=== PATIENT | female | born 1945 | race Caucasian/White ===

== ENCOUNTER → 2017-05-01 | Outpatient (CLI) | payer MEDICARE, OTHER | END | disposition home or self-care (01) | LOC: GMAB 10:49 | PROVIDERS: ATTEND Family Medicine | DX: I10 Essential (primary) hypertension (principal) ==

== ENCOUNTER 2017-10-11 17:17 | Emergency (ER) | payer MEDICARE, OTHER ==
[2017-10-11 17:26] VITALS: BP 153/76; TEMP 99.8; O2SAT 95
--- NOTE | 2017-10-11 18:01 | RAD ---
EXAM DESCRIPTION: Chest,2 Views CLINICAL HISTORY: 72 years Female, cough, flu-like symptoms COMPARISON: 16 April 2016 TECHNIQUE: PA/lateral FINDINGS: There is no cardiac or pulmonary abnormality. The lungs are clear. There is no effusion. IMPRESSION: 1. Normal two-view chest. Electronically signed by: Dilshad Villalobos MD 10/11/2017 6:00 PM [facility]
[2017-10-11] MEDS ORDERED: AZITHROMYCIN 250 MG TAB PO ONE (19:11)
[2017-10-11] MEDS ORDERED: predniSONE 20 MG TAB PO ONE (19:11)
--- NOTE | 2017-10-11 19:22 | ED.PDOC ---
History of Present Illness - General Chief Complaint: Respiratory Problem Stated Complaint: Cough, sore throat Time Seen by Provider: 10/11/17 17:23 Source: patient, RN notes reviewed, Vital Signs reviewed Exam Limitations: no limitations Additional Information: Approximate 1 week hx of cough and congestion with an increase in body aches and discomfort throughout last night. Low grade fever reported as well. - History of Present Illness Timing/Duration: week, getting worse Improving Factors: rest Worsening Factors: movement Associated Symptoms: fever/chills, sore throat Allergies/Adverse Reactions: Allergies NO KNOWN ALLERGY Allergy (Verified 04/16/16 23:12) Home Medications: Ambulatory Orders Propafenone HCl [Propafenone HCl ER] 225 mg PO BID 12/07/15 Warfarin Sodium 5 mg PO DAILY 12/07/15 Warfarin Sodium 7.5 mg PO DAILY 12/07/15 Azithromycin [Zithromax Z-Feng] 1 ea PO DAILY #1 pack 10/11/17 Prednisone [Deltasone] 40 mg PO DAILY 4 Days #8 tab 10/11/17 Review of Systems - Review of Systems Constitutional: States: fever EENTM: States: see HPI, throat pain Respiratory: States: see HPI, cough Cardiology: States: no symptoms reported Gastrointestinal/Abdominal: States: no symptoms reported Genitourinary: States: no symptoms reported Musculoskeletal: States: no symptoms reported Skin: States: no symptoms reported Neurological: States: no symptoms reported Endocrine: States: no symptoms reported Hematologic/Lymphatic: States: no symptoms reported Past Medical History (General) - Patient Medical History Hx Seizures: No Hx Stroke: No Hx Dementia: No Hx Asthma: No Hx of COPD: No Hx Cardiac Disorders: Yes Hx Congestive Heart Failure: No Hx Pacemaker: No Hx Hypertension: Yes Hx Thyroid Disease: No Hx Diabetes: No Hx Gastroesophageal Reflux: No Hx Renal Disease: No Hx Cancer: No Hx of HIV: No Hx Hepatitis C: No Hx MRSA: No - Vaccination History Hx Tetanus, Diphtheria Vaccination: No Hx Influenza Vaccination: No Hx Pneumococcal Vaccination: Yes - Social History Hx Tobacco Use: No Hx Chewing Tobacco Use: No Hx Alcohol Use: No Hx Substance Use: No Hx Substance Use Treatment: No Hx Depression: No Hx Physical Abuse: No Hx Emotional Abuse: No Hx Suspected Abuse: No - Female History Patient : No Family Medical History - Family History Mother Family History: Unknown Living Status: Physical Exam - Physical Exam General Appearance: Alert, Comfortable, No apparent distress, Well Developed, Well Groomed, Well Hydrated, Well Nourished Eye Exam: bilateral normal ENT Exam: normal ENT inspection, hearing grossly normal, pharynx normal Neck: non-tender, full range of motion, supple Respiratory: lungs clear - with occasional dry cough, no respiratory distress, no accessory muscle use Cardiovascular/Chest: regular rate, rhythm, no edema Gastrointestinal/Abdominal: non tender, soft Extremity: normal range of motion, non-tender, normal inspection Neurologic: automatic outsole cutter II-XII nml as tested, no motor/sensory deficits, alert, normal mood/affect, oriented x 3 Skin Exam: normal color Progress - Progress Progress: 10/12/17 00:15 Pt afebrile, nontoxic. CXR without evidence of PNA. Flu negative. Will treat with Z-Feng to cover for atypicals and Prednisone to help with suspected airway inflammation for bronchitis likely due to a virus or allergen. - Results/Orders Results/Orders: Chest X-ray normal and Rapid Flu test negative. Departure - Departure Clinical Impression: Bronchitis Time of Disposition: 19:25 Disposition: Discharge to Home or Self Care Departure Forms: ED Discharge - Pt. Copy, Patient Portal Self Enrollment Instructions: DI for Acute Bronchitis Referrals: Niranjan Bryant MD [Primary Care Provider] - 1-5 Days Prescriptions: Azithromycin [Zithromax Z-Feng] 1 ea PO DAILY #1 pack Prednisone [Deltasone] 40 mg PO DAILY 4 Days #8 tab Home Medications: Ambulatory Orders Propafenone HCl [Propafenone HCl ER] 225 mg PO BID 12/07/15 Warfarin Sodium 5 mg PO DAILY 12/07/15 Warfarin Sodium 7.5 mg PO DAILY 12/07/15 Azithromycin [Zithromax Z-Feng] 1 ea PO DAILY #1 pack 10/11/17 Prednisone [Deltasone] 40 mg PO DAILY 4 Days #8 tab 10/11/17 Additional Instructions: Take medicine as prescribed. Sleep upright if needed to decrease coughing sensation. Return to ER if condition worsens.
== END 2017-10-11 19:25 | disposition home or self-care (01) ==
LOC: ER 17:17
DX: J40 Bronchitis, not specified as acute or chronic (principal); I10 Essential (primary) hypertension; I51.9 Heart disease, unspecified; Z79.01 Long term (current) use of anticoagulants; Z79.899 Other long term (current) drug therapy
CPT/HCPCS: 71020; 87502; J7512; Q0144

== ENCOUNTER 2017-10-13 21:42 | Observation (INO) | payer MEDICARE, OTHER ==
--- NOTE | 2017-10-13 22:46 | RAD ---
EXAM: Two view chest. INDICATION: Palpitations. COMPARISON: Chest x-ray: 10/11/2017. FINDINGS: Cardiac silhouette: Unremarkable. Aggie: Unremarkable. Lobar consolidation: None. Pleural effusion: None. Pneumothorax: None. Other: None. Bones: Unremarkable. Other: None. IMPRESSION: 1. No acute cardiopulmonary process. Electronically signed by: Quan Leigh MD 10/13/2017 10:45 PM [facility] Workstation: [id number]
[2017-10-13] MEDS ORDERED: SODIUM CHLORIDE 0.9% 1000ML 1,000 ML IVS ONE (23:05)
--- NOTE | 2017-10-14 00:39 | ED.PDOC ---
History of Present Illness - General Chief Complaint: Cardiovascular Problem Stated Complaint: Irregular heart rate Time Seen by Provider: 10/13/17 22:06 Source: patient Exam Limitations: no limitations - History of Present Illness Initial Comments: the patient's a 72-year-old female presenting to the emergency room secondary to feeling of palpitations starting early this morning. The patient does have a history of atrial fibrillation but has been in a normal sinus rhythm for a couple of years while taking propanolol unknown. Approximately 5 or 6 days ago the patient was seen for a upper respiratory tract infection and was written for for some azithromycin and prednisone. It is uncertain whether the azithromycin has interacted with the propafenone because the arrhythmia is seen today. Initial EKG upon her arrival here showed what appears to be a winky block type block with a sinus tachycardia where every third beat is skipped. After an hour or so the patient went over to gilbert atrial fibrillation with RVR. She did take an extra dose of her propafenone this evening. She does still have a very mild clearing cough. Timing/Duration: constant Severity: moderate Improving Factors: nothing Worsening Factors: nothing Associated Symptoms: denies symptoms Allergies/Adverse Reactions: Allergies NO KNOWN ALLERGY Allergy (Verified 04/16/16 23:12) Home Medications: Ambulatory Orders Propafenone HCl [Propafenone HCl ER] 225 mg PO BID 12/07/15 Warfarin Sodium 5 mg PO DAILY 12/07/15 Warfarin Sodium 7.5 mg PO DAILY 12/07/15 Azithromycin [Zithromax Z-Feng] 1 ea PO DAILY #1 pack 10/11/17 Prednisone [Deltasone] 40 mg PO DAILY 4 Days #8 tab 10/11/17 Review of Systems - Review of Systems Constitutional: States: no symptoms reported EENTM: States: nose congestion Respiratory: States: cough. Denies: short of breath Cardiology: States: palpitations. Denies: chest pain Gastrointestinal/Abdominal: States: no symptoms reported Genitourinary: States: no symptoms reported Musculoskeletal: States: no symptoms reported Skin: States: no symptoms reported Neurological: States: no symptoms reported Endocrine: States: no symptoms reported All other Systems: No Change from Baseline Past Medical History (General) - Patient Medical History Hx Seizures: No Hx Stroke: No Hx Dementia: No Hx Asthma: No Hx of COPD: No Hx Cardiac Disorders: Yes Hx Congestive Heart Failure: No Hx Pacemaker: No Hx Hypertension: Yes Hx Thyroid Disease: No Hx Diabetes: No Hx Gastroesophageal Reflux: No Hx Renal Disease: No Hx Cancer: No Hx of HIV: No Hx Hepatitis C: No Hx MRSA: No Surgical History: no surgical history - Vaccination History Hx Tetanus, Diphtheria Vaccination: No Hx Influenza Vaccination: No Hx Pneumococcal Vaccination: Yes - 2016 - Social History Hx Tobacco Use: No Hx Chewing Tobacco Use: No Hx Alcohol Use: No Hx Substance Use: No Hx Substance Use Treatment: No Hx Depression: No Hx Physical Abuse: No Hx Emotional Abuse: No Hx Suspected Abuse: No - Female History Patient : No Family Medical History - Family History Mother Family History: Unknown Living Status: Physical Exam - Physical Exam General Appearance: Alert, Comfortable, No apparent distress Eye Exam: bilateral normal Ears, Nose, Throat: hearing grossly normal, normal pharynx, nasal congestion Neck: full range of motion, supple Respiratory: lungs clear, normal breath sounds, no respiratory distress, no accessory muscle use Cardiovascular/Chest: normal peripheral pulses, no edema, tachycardia Peripheral Pulses: radial,right: 2+, radial,left: 2+, dorsalis pedis,right: 2+, dorsalis pedis,left: 2+ Gastrointestinal/Abdominal: non tender, soft Rectal Exam: deferred Back Exam: normal inspection, no CVA tenderness Extremity: normal range of motion, non-tender, normal inspection, no pedal edema , normal capillary refill Neurologic: family law attorney II-XII nml as tested, no motor/sensory deficits, alert, normal mood/affect, oriented x 3 Skin Exam: normal color Comments: Vital Signs - 24 hr 10/13/17 10/13/17 10/13/17 21:59 22:25 23:00 Temperature 98.5 F Pulse Rate 112 H 122 H 124 H Pulse Rate [ 113 H 121 H 120 H right] Respiratory 16 16 16 Rate Blood Pressure 164/91 112/86 140/99 [right] O2 Sat by Pulse 98 96 95 Oximetry Progress - Progress Progress: 10/14/17 00:42 the patient's a 72-year-old female presenting to the emergency room with palpitations. She has gone from a wenckebach block with tachycardia to atrial fibrillation with RVR. She is minimally symptomatic however given the mildly unpredictable nature of her arrhythmia the patient is going to be admitted overnight for monitoring. I have discussed the patient with Dr. Peng , who is a partner of compliance assistant Dr. Dumont,her primary compliance assistant, who has advised to give the patient some Cardizem overnight to see if she goes on and slows down and cardioverts. The patient is agreeable to this plan. She will be continued on her routine medications aside from the prednisone and the azithromycin. Admit for above measures and monitoring. 10/14/17 00:45 - Results/Orders Results/Orders: Laboratory Tests 10/13/17 10/13/17 10/13/17 22:17 22:17 22:17 WBC 4.5 L RBC 4.32 Hgb 13.5 Hct 40.4 MCV 93.5 MCH 31.3 H MCHC 33.4 RDW 13.5 Plt Count 192 MPV 7.9 Absolute Neuts (auto) 1.20 L Absolute Lymphs (auto) 2.30 Absolute Monos (auto) 0.90 H Absolute Eos (auto) 0.00 Absolute Basos (auto) 0.00 Neutrophils % 27.7 L Lymphocytes % 51.5 H Monocytes % 19.4 H Eosinophils % 0.9 L Basophils % 0.5 PT 18.3 H INR 1.630 PTT (SP) 35.5 Sodium 142 Potassium 3.6 Chloride 107 Carbon Dioxide 26 Anion Gap 12.6 BUN 17 Creatinine 0.78 BUN/Creatinine Ratio 21.8 H Random Glucose 94 Serum Osmolality 284.4 Calcium 9.0 Magnesium 1.9 Total Bilirubin 0.3 AST 37 ALT 28 Alkaline Phosphatase 76 Creatine Kinase 62 CK-MB (CK-2) 1.4 CK-MB (CK-2) % Not Reportable Troponin I < 0.02 B-Natriuretic Peptide 71.6 Serum Total Protein 7.7 Albumin 4.0 Globulin 3.7 H Albumin/Globulin Ratio 1.1 TSH 3.54 chest x-ray shows no acute pathology. No evidence of any gilbert pneumonia. No evidence of fluid overload. EKG shows sinus tachycardia with a winky block block at a rate of 113 bpm. Poor R-wave progression in anterior leads. Mild ST segment depression in leads V6 and possibly V5. There is a prolonged QT corrected at 510. Later telemetry shows gilbert atrial fibrillationwith RVR. Departure - Departure Clinical Impression: Paroxysmal atrial fibrillation with RVR Disposition: Admit Patient Referrals: Niranjan Bryant MD [Primary Care Provider] - 1-2 Weeks Home Medications: Ambulatory Orders Propafenone HCl [Propafenone HCl ER] 225 mg PO BID 12/07/15 Warfarin Sodium 5 mg PO DAILY 12/07/15 Warfarin Sodium 7.5 mg PO DAILY 12/07/15 Azithromycin [Zithromax Z-Feng] 1 ea PO DAILY #1 pack 10/11/17 Prednisone [Deltasone] 40 mg PO DAILY 4 Days #8 tab 10/11/17 Decision To Admit - Decistion To Admit Decision to Admit Reason: Medical Nature Decision to Admit Date: 10/14/17 Decision to Admit Time: 00:51
[2017-10-14] MEDS ORDERED: ACETAMINOPHEN 325 MG TAB PO PRN (00:56)
[2017-10-14] MEDS ORDERED: SODIUM CHLORIDE 0.9% (FLUSH) 10 ML SYG IV PRN (00:56)
[2017-10-14] MEDS ORDERED: NITROGLYCERIN 0.4 MG 25 EA TAB SL PRN (00:56)
[2017-10-14] MEDS ORDERED: IV SET AND CAP CHANGE INJ INJ SCH (01:00)
[2017-10-14] MEDS ORDERED: ENOXAPARIN SODIUM 80 MG/0.8 ML SYG SUBCU ONE (02:12)
[2017-10-14] MEDS ORDERED: WARFARIN SODIUM 5 MG TAB ONE (08:51)
[2017-10-14] MEDS ORDERED: SODIUM CHLORIDE 0.9% (FLUSH) 10 ML SYG IV SCH (09:00)
[2017-10-14] MEDS ORDERED: PROPAFENONE 150 MG TAB PO SCH (09:00)
[2017-10-14 10:52] VITALS: O2SAT 94
[2017-10-14 10:53] VITALS: BP 119/81; TEMP 96.4
[2017-10-14] MEDS ORDERED: WARFARIN SODIUM 5 MG TAB PO SCH (12:00)
--- NOTE | 2017-10-14 15:12 | SSS ---
SUPERVISING PHYSICIAN: Roberto Shaw M.D. CHIEF COMPLAINT: Irregular heart rate. HISTORY OF PRESENT ILLNESS: Ms. Rodriguez is a 72 year-old female patient that presented to the Emergency Room on 10/13/17 secondary to some palpitations that she had noted earlier in the day. She does have a significant history for having atrial fibrillation but it is noted that she has been in normal sinus rhythm for several years for which she takes Rythmol. She notes that she was in the E. R. approximately 5 days previously and was treated for an upper respiratory infection and started on Azithromycin and Prednisone. There was a question of whether or not her arrhythmia was a result of interactions between Azithromycin and Rythmol. Her initial EKG on arrival showed that she was in a Wenckebach type block with a sinus tachycardia. She did convert into atrial fibrillation with rapid ventricular response and then at that time Dr. Shaw, EPrateek Gottlieb. physician, contacted Dr. Dumont, the patient's washtub worker helper, who recommended that the patient be placed in Observation for overnight monitoring and stop the Azithromycin, and continue with all other medications. The patient was showing to be stable at time of admission and was placed in Observation. PAST MEDICAL HISTORY: 1. Hypertension. 2. History of atrial fibrillation but currently in normal sinus rhythm on Rythmol and on chronic anticoagulation with Warfarin. PAST SURGICAL HISTORY: 1. A couple of epidermal cysts removed and once in the breast. CURRENT MEDICATIONS: 1. Losartan 50 mg at bedtime. 2. Rythmol extended release 245 mg b.i.d. 3. Warfarin 5 mg daily. ALLERGIES: NO KNOWN DRUG ALLERGIES. FAMILY HISTORY: Mother at age 73 with Alzheimer's disease. She as well had cardiovascular disease. Father at age 67 with an autoimmune disorder. SOCIAL HISTORY: The patient has never smoked or drank alcohol. 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 She is and lives in [place]. REVIEW OF SYSTEMS: CONSTITUTIONAL: Denies any fevers, chills, weight gain or weight loss. HEENT: No visual disturbances, headaches, syncopal episodes. CARDIOVASCULAR: As noted in history of present illness. No chest pains but palpitations. RESPIRATORY: Denies any shortness of breath, cough or hemoptysis. GASTROINTESTINAL: No nausea, vomiting, hematochezia, hematemesis or melena, diarrhea or constipation. GENITOURINARY: No dysuria, hematuria or polyuria. NEUROLOGIC: No reported weaknesses or any other loss of sensation of extremities. No syncopal episodes reported nor any near syncopal episodes. PHYSICAL EXAMINATION: VITAL SIGNS: Initially in the Emergency Department temperature was 98.5, pulse 122, blood [id number], respirations 16, satting 96% on room air. Admission weight was 84.5 kg. GENERAL: On examination on the Medical/Surgical floor, the patient appeared to be comfortable in no distress, alert and well hydrated, well nourished. HEENT: Tympanic membranes are clear bilaterally. Oropharynx was pink and moist without any lesions. NECK: Supple, non-tender with full range of motion. No jugular venous distention. CHEST: Lungs were clear to auscultation bilaterally without any rhonchi, wheezing or rales. CARDIOVASCULAR: Regular rate and rhythm with no rubs, gallops or murmurs noted. ABDOMEN: Soft, non-tender. Positive bowel sounds. EXTREMITIES: No clubbing, cyanosis or edema. NEUROLOGIC: She was alert and oriented times three. Cranial nerves II-XII are grossly intact. Extraocular movements are within normal limits. There was no notable nystagmus. LABORATORY: Laboratory in the Emergency Department showed she had a white count of 4,500 with hemoglobin 13.5, hematocrit 40.4, platelet count 192,000. Differential showed to be within normal limits. Coagulation studies showed an INR of 1.63 with PT of 18.3, PTT 35.5. Chemistries showed normal electrolytes with BUN 17, creatinine 0.7, glucose 94, calcium 9.8, magnesium 1.9. Liver functions all within normal limits. Troponin was less than 0.02. BNP was normal at 72. RADIOLOGY: Chest x-ray in the Emergency Department per radiology interpretation of a two view chest showed no acute cardiopulmonary process. EKG initially in the Emergency Department showed sinus tachycardia with Wenckebach block at a rate of 113 with a prolonged QT corrected interval of 510. After given Cardizem and several hours observation, repeat EKG showed a sinus tachycardia arrhythmia. No ST changes or T wave inversions. Final EKG performed prior to discharge showed just a sinus arrhythmia with no ST or T wave changes. HOSPITAL COURSE: Ms. Rodriguez was placed in Observation from the Emergency Department as noted in History of Present Illness for atrial fibrillation or rapid heart rate resulted from interaction between Azithromycin and Rythmol. The E. R. physician, Dr. Shaw, contacted Dr. Dumont who recommended that the patient be placed in Observation overnight and allow her to get a dose of Cardizem and may possibly cardiovert on her own with the intentions of discontinuing Azithromycin. The patient was admitted to the Medical/Surgical floor. At that time she was showing a sinus arrhythmia. No evidence of atrial fibrillation. Ventricular rate of 102. She was hemodynamically stable. She had no chest pains. No shortness of breath and on examination was found to be without any concerning findings. She was given her home medications that included Rythmol prior to discharge and allowed for an additional 6 hours of observation with no recurrence of rapid heart rates or any other arrhythmias. It was felt that she was clinically stable enough to be discharged home. She was instructed that she should not take her Azithromycin and Prednisone, and as well make sure that she lists Azithromycin as an adverse reaction due to the Rythmol. The patient was discharged in stable condition. DIAGNOSIS AT DISCHARGE: 1. Paroxysmal supraventricular tachycardia secondary to drug interactions between Azithromycin and Rythmol requiring close monitoring with the patient showing a sinus arrhythmia prior to discharge with controlled ventricular rate and hemodynamically stable. 2. History of atrial fibrillation having been in normal sinus rhythm for well over 2 years with the patient again showing sinus arrhythmia at discharge on Rythmol. 3. Hypertension on Losartan and well controlled. 4. Chronic anticoagulation with Coumadin monitored by Dr. Bryant. 5. History of previous treatments for upper respiratory infection with Azithromycin and Prednisone showing improvement with no evidence of bronchitis or pneumonia. PLAN: The patient is to discharge home to have close clinical followup with both Dr. Bryant and Dr. Dumont, her washtub worker helper. She was instructed to not take the Azithromycin antibiotic or Prednisone. She was to take her regular medications as previously instructed and to rest and avoid any caffeine- containing drinks. She was instructed that should she have any change in her rhythms or any concerns or chest pain, she was to return to the E. R. for further evaluation. At discharge, diet was regular diet as tolerated. Activity as tolerated but no strenuous exercise for at least the next 48 hours. MEDICATIONS AT DISCHARGE: No new medications were prescribed. She was on home medications as above on Losartan, Rythmol and Warfarin. Condition at discharge was stable and improved. #[id number] [facility]
[2017-10-14] MEDS ORDERED: LOSARTAN POTASSIUM 25 MG TAB PO SCH (21:00)
== END 2017-10-14 12:55 | disposition home or self-care (01) ==
LOC: ER 21:42 → MS 10-14 01:01
PROVIDERS: ADMIT Nurse Practitioner Family; ATTEND Nurse Practitioner Family
DX: I47.1 Supraventricular tachycardia (principal); T36.3X5A Adverse effect of macrolides, initial encounter; T46.2X5A Adverse effect of other antidysrhythmic drugs, initial encounter; I44.1 Atrioventricular block, second degree; I48.91 Unspecified atrial fibrillation; I10 Essential (primary) hypertension; Z79.01 Long term (current) use of anticoagulants; Z79.899 Other long term (current) drug therapy; Y92.009 Unspecified place in unspecified non-institutional (private) residence as the place of occurrence of the external cause; Z82.49 Family history of ischemic heart disease and other diseases of the circulatory system
CPT/HCPCS: 36415; 71020; 80053; 82550; 82553; 83735; 83880; 84443; 84484; 85025; 85610; 85730; 93005 ×2; 94760; 96361; 96372; 96374; 99284; G0378; J1650; J7030

== ENCOUNTER 2017-11-21 20:56 | Emergency (ER) | payer MEDICARE, OTHER ==
[2017-11-21 22:27] VITALS: TEMP 97.4; O2SAT 98
[2017-11-21] MEDS ORDERED: CYCLOBENZAPRINE HCL 10 MG TAB PO ONE (22:50)
[2017-11-21] MEDS ORDERED: predniSONE 20 MG TAB PO ONE (22:50)
[2017-11-21] MEDS ORDERED: KETOROLAC TROMETHAMINE INJ 30 MG/ML VIAL IM ONE (22:53)
--- NOTE | 2017-11-21 22:53 | ED.PDOC ---
History of Present Illness - General Chief Complaint: Back Pain or Injury Stated Complaint: upper back pain Time Seen by Provider: 11/21/17 22:25 Source: patient Exam Limitations: no limitations - History of Present Illness Initial Comments: the patient is a 72-year-old female presenting to emergency room secondary to 3-5 days of right-sided shoulder pain. The pain is at the superior -lateral aspect of the trapezius muscle on the right. It is also over the rhomboid muscle on the right. Both areas are tender to palpation. After she has a spasm in those areas she has pain going down her right arm in aradiculopathic type fashion. She has been doing some heavy lifting recently. She is not having any shortness of breath or chest pain or palpitations. No nausea or vomiting. No fevers. Timing/Duration: 1 week Severity: mild Improving Factors: nothing Worsening Factors: movement Associated Symptoms: denies symptoms Allergies/Adverse Reactions: Allergies Azithromycin Adverse Reaction (Verified 11/21/17 22:20) Home Medications: Ambulatory Orders Propafenone HCl [Propafenone HCl ER] 225 mg PO BID 12/07/15 Warfarin Sodium 5 mg PO DAILY 12/07/15 Losartan Potassium [Cozaar] 50 mg PO BEDTIME 10/14/17 Jcycuqersbtna-Mzin-Swwnwnvlur [Fioricet] 1 ea PO Q8H PRN #21 tab 11/21/17 Cyclobenzaprine HCl [Flexeril] 5 mg PO TID PRN #30 tab 11/21/17 predniSONE [Prednisone] 20 mg PO DAILY #3 tab 11/21/17 Review of Systems - Review of Systems Constitutional: States: no symptoms reported EENTM: States: no symptoms reported Respiratory: States: no symptoms reported Cardiology: States: no symptoms reported Gastrointestinal/Abdominal: States: no symptoms reported Genitourinary: States: no symptoms reported Musculoskeletal: States: back pain Skin: States: no symptoms reported Neurological: States: anxiety Endocrine: States: no symptoms reported All other Systems: No Change from Baseline Past Medical History (General) - Patient Medical History Hx Seizures: No Hx Stroke: No Hx Dementia: No Hx Asthma: No Hx of COPD: No Hx Cardiac Disorders: Yes - A-fib Hx Congestive Heart Failure: No Hx Pacemaker: No Hx Hypertension: Yes Hx Thyroid Disease: No Hx Diabetes: No Hx Gastroesophageal Reflux: No Hx Renal Disease: No Hx Cancer: No Hx of HIV: No Hx Hepatitis C: No Hx MRSA: No Surgical History: no surgical history - Vaccination History Hx Tetanus, Diphtheria Vaccination: No Hx Influenza Vaccination: No Hx Pneumococcal Vaccination: Yes Immunizations Up to Date: Yes - Social History Hx Tobacco Use: No Hx Chewing Tobacco Use: No Hx Alcohol Use: No Hx Substance Use: No Hx Substance Use Treatment: No Hx Depression: No Hx Physical Abuse: No Hx Emotional Abuse: No Hx Suspected Abuse: No - Female History Patient is a Female of Child Bearing Age (10 -59 yrs old): No Patient : No Family Medical History - Family History Mother Family History: Unknown Living Status: Hx Cardiac Disease: Yes Age of Onset (years of age): 68 Physical Exam - Physical Exam General Appearance: Alert, Anxious, No apparent distress Eye Exam: bilateral normal Ears, Nose, Throat: normal ENT inspection, normal pharynx Neck: full range of motion, supple Respiratory: lungs clear, normal breath sounds, no respiratory distress, no accessory muscle use Cardiovascular/Chest: normal peripheral pulses, regular rate, rhythm, no edema Peripheral Pulses: radial,right: 2+, radial,left: 2+, dorsalis pedis,right: 2+, dorsalis pedis,left: 2+ Gastrointestinal/Abdominal: non tender, soft Rectal Exam: deferred Back Exam: other - see history of present illness Extremity: normal range of motion, non-tender, normal inspection, no pedal edema 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 Progress - Progress Progress: 11/21/17 22:54 the patient is a 72-year-old female presenting with a right shoulder strain in the form of what appears to be a distal trapezius strain on the right and a rhomboid strain on the right. She needs to do stretching exercises. Topical heat in the form of a heat pad or icy hot or Biofreeze may help. The patient is being dosed tonight with a dose of Flexeril and prednisone. She will be written for 3 days of low-dose prednisone and as needed 5 mg Flexeril. Additionally she will be written for doses of Fioricet when the pain is significantly uncontrolled. She should also try taking Aleve twice daily for the next week with food. ER warnings were given for any significant worsening. She needs to follow-up with her primary care doctor later this week or early next week. She is in normal sinus rhythm currently. She needs to have a repeat INR checkedearly next week. Departure - Departure Clinical Impression: Right shoulder strain Qualifiers: Encounter type: initial encounter Qualified Code(s): S46.911A - Strain of unspecified muscle, fascia and tendon at shoulder and upper arm level, right arm , initial encounter Disposition: Discharge to Home or Self Care Condition: Fair Departure Forms: ED Discharge - Pt. Copy, Patient Portal Self Enrollment Instructions: DI for Shoulder Pain Diet: regular diet Activity: increase activity as tolerated Referrals: Niranjan Bryant MD [Primary Care Provider] - 1-5 Days Prescriptions: Eohcqynkqmnpg-Zrmm-Tmtvaljecr [Fioricet] 1 ea PO Q8H PRN #21 tab PRN Reason: Pain Cyclobenzaprine HCl [Flexeril] 5 mg PO TID PRN #30 tab PRN Reason: Muscle Spasms predniSONE [Prednisone] 20 mg PO DAILY #3 tab Home Medications: Ambulatory Orders Propafenone HCl [Propafenone HCl ER] 225 mg PO BID 12/07/15 Warfarin Sodium 5 mg PO DAILY 12/07/15 Losartan Potassium [Cozaar] 50 mg PO BEDTIME 10/14/17 Ffcywpecolrzv-Zynp-Kwnnnhxaxg [Fioricet] 1 ea PO Q8H PRN #21 tab 11/21/17 Cyclobenzaprine HCl [Flexeril] 5 mg PO TID PRN #30 tab 11/21/17 predniSONE [Prednisone] 20 mg PO DAILY #3 tab 11/21/17 Additional Instructions: the patient is a 72-year-old female presenting with a right shoulder strain in the form of what appears to be a distal trapezius strain on the right and a rhomboid strain on the right. She needs to do stretching exercises. Topical heat in the form of a heat pad or icy hot or Biofreeze may help. The patient is being dosed tonight with a dose of Flexeril and prednisone. She will be written for 3 days of low-dose prednisone and as needed 5 mg Flexeril. Additionally she will be written for doses of Fioricet when the pain is significantly uncontrolled. She should also try taking Aleve twice daily for the next week with food. ER warnings were given for any significant worsening. She needs to follow-up with her primary care doctor later this week or early next week. She is in normal sinus rhythm currently. She needs to have a repeat INR checkedearly next week. her blood pressure was moderately elevated here tonight and needs to be followed as an outpatient with her primary care doctor. It was likely elevated secondary to anxiety and pain.
[2017-11-21 23:18] VITALS: BP 185/90
== END 2017-11-21 23:17 | disposition home or self-care (01) ==
LOC: ER 20:56
DX: S46.911A Strain of unspecified muscle, fascia and tendon at shoulder and upper arm level, right arm, initial encounter (principal); I48.91 Unspecified atrial fibrillation; I10 Essential (primary) hypertension; Z79.01 Long term (current) use of anticoagulants; X58.XXXA Exposure to other specified factors, initial encounter
CPT/HCPCS: J1885; J7512

== ENCOUNTER 2018-02-16 00:37 | Emergency (ER) | payer MEDICARE, OTHER ==
[2018-02-16 00:55] VITALS: TEMP 97.8
[2018-02-16] MEDS ORDERED: ALPRAZolam 0.25 MG TAB PO ONE (01:05)
--- NOTE | 2018-02-16 01:14 | RAD ---
Examination: XR CHEST 1 VIEW dated 02/16/2018 12:42 AM CDT History: heart racing, palpitations Comparison: 10/13/2017 Technique: 1 view chest Findings: The lungs are clear bilaterally. No pneumothorax or pleural effusion. The cardiomediastinal silhouette is within normal limits. Impression: No acute findings. Electronically signed by: Mateo Ojeda MD 02/16/2018 1:13 AM CDT
[2018-02-16 01:44] VITALS: O2SAT 95
--- NOTE | 2018-02-16 01:52 | ED.PDOC ---
History of Present Illness - General Chief Complaint: Cardiovascular Problem Stated Complaint: heart racing Time Seen by Provider: 02/16/18 00:48 Source: patient Exam Limitations: no limitations - History of Present Illness Initial Comments: Demetria Rodriguez 72 y/o female with history of paroxysmal a fib brought by to [facility]-er stating that after coming fom bathroom tonight had onset of feeling heart was racing.Denies chest pains ,SOB,dizziness or diaphoresis.Stated took her extra dose of propafenone as per her md instruction Timing/Duration: 1-3 hours Severity: moderate Activities at Onset: rest Prior Chest Pain/Cardiac Workup: echocardiography, stress test Improving Factors: nothing Worsening Factors: other - see hpi Nitro Today/Relief: no nitro taken today, 0.4 mg x 3 Associated Symptoms: denies symptoms Allergies/Adverse Reactions: Allergies Azithromycin Adverse Reaction (Verified 02/16/18 01:09) Home Medications: Ambulatory Orders Propafenone HCl [Propafenone HCl ER] 225 mg PO BID 12/07/15 Warfarin Sodium 5 mg PO DAILY 12/07/15 Losartan Potassium [Cozaar] 50 mg PO BEDTIME 10/14/17 Ynpnrietyuxwx-Tjlh-Tkrzzzwsik [Fioricet] 1 ea PO Q8H PRN #21 tab 11/21/17 Cyclobenzaprine HCl [Flexeril] 5 mg PO TID PRN #30 tab 11/21/17 predniSONE [Prednisone] 20 mg PO DAILY #3 tab 11/21/17 Review of Systems - Review of Systems Constitutional: States: no symptoms reported EENTM: States: no symptoms reported Respiratory: States: no symptoms reported Cardiology: States: see HPI Gastrointestinal/Abdominal: States: no symptoms reported Genitourinary: States: no symptoms reported Musculoskeletal: States: no symptoms reported Skin: States: no symptoms reported Neurological: States: no symptoms reported All other Systems: Reviewed and Negative, No Change from Baseline Past Medical History (General) - Patient Medical History Hx Seizures: No Hx Stroke: No Hx Dementia: No Hx Asthma: No Hx of COPD: No Hx Cardiac Disorders: Yes - a-fib Hx Congestive Heart Failure: No Hx Pacemaker: No Hx Hypertension: Yes - takes losartan Hx Thyroid Disease: No Hx Diabetes: No Hx Gastroesophageal Reflux: No Hx Renal Disease: No Hx Cancer: No Hx of HIV: No Hx Hepatitis C: No Hx MRSA: No Surgical History: no surgical history - Vaccination History Hx Tetanus, Diphtheria Vaccination: Yes Hx Influenza Vaccination: No Hx Pneumococcal Vaccination: No - Social History Hx Tobacco Use: No Hx Chewing Tobacco Use: No Hx Alcohol Use: No Hx Substance Use: No Hx Substance Use Treatment: No Hx Depression: No Feels Threatened In Home Enviroment: No Feels Threatened In a Relationship: No Hx Physical Abuse: No Hx Emotional Abuse: No Hx Suspected Abuse: No - Activities of Daily Living Hospice Agency (if applicable):: None Grooming Ability: Independent Eating (Feeding) Ability: Independent Toileting Ability: Independent - Female History Patient is a Female of Child Bearing Age (10 -59 yrs old): No Patient : No - Triage Comment ED Triage Comment: Pt states that she started feeling like she had heart palpitations around 2230 when she was going to bed. She said that she woke up around midnight and felt out of rhythym. Family Medical History - Family History Mother Family History: Unknown Living Status: Hx Cardiac Disease: Yes - multiple family members Age of Onset (years of age): 68 Hx Family Diabetes: Yes - brother Hx Family Cancer: Yes - breast-mom Physical Exam - Physical Exam General Appearance: Alert, Anxious, Comfortable, No apparent distress Eyes, Ears, Nose, Throat Exam: normal ENT inspection Neck: non-tender, supple Respiratory: chest non-tender, lungs clear, normal breath sounds Cardiovascular/Chest: normal peripheral pulses, no gallop, no murmur, irregularly irregular Peripheral Pulses: radial,right: 2+, radial,left: 2+ Gastrointestinal/Abdominal: non tender, soft, no organomegaly Extremity: non-tender, no pedal edema, no calf tenderness Neurologic: alert, oriented x 3 Skin Exam: normal color, warm/dry Progress - Progress Progress: 02/16/18 02:09 Vital Signs - 8 hr 02/16/18 02/16/18 02/16/18 00:47 00:55 01:00 Temperature 97.8 F Pulse Rate [ 104 H 104 H Monitor] Respiratory 18 Rate Blood Pressure 161/118 [Right Arm] O2 Sat by Pulse 97 97 Oximetry 02/16/18 02/16/18 01:02 01:42 Temperature 97.8 F Pulse Rate [ 104 H 71 Monitor] Respiratory 18 18 Rate Blood Pressure 157/98 [Right Arm] O2 Sat by Pulse 95 Oximetry 02/16/18 02:32 Had converted to sinus rhythm HR-74 no acute changes noted - Results/Orders Results/Orders: 02/16/18 00:42 Telemetry .ONCE EKG Stat Pulse Ox Stat 02/16/18 00:43 Pulse Oximetry Assessment DAILY 02/16/18 00:50 IV Care:Saline Lock per Protoc QSHIFT 02/16/18 01:35 EKG Assessment ONCE 02/16/18 01:45 EKG STAT 02/16/18 02:00 URINALYSIS Stat Laboratory Results - last 24 hr 02/16/18 00:50 WBC 6.2 RBC 4.38 Hgb 13.8 Hct 41.1 MCV 93.9 MCH 31.6 H MCHC 33.6 RDW 13.5 Plt Count 217 MPV 7.9 Absolute Neuts (auto) 2.30 Absolute Lymphs (auto) 2.90 Absolute Monos (auto) 0.60 Absolute Eos (auto) 0.30 Absolute Basos (auto) 0.00 Neutrophils % 37.6 L Lymphocytes % 47.7 Monocytes % 9.4 H Eosinophils % 4.5 Basophils % 0.8 PT 16.0 H INR 1.380 PTT (SP) 33.9 Sodium 140 Potassium 3.7 Chloride 106 Carbon Dioxide 27 Anion Gap 10.7 L BUN 17 Creatinine 0.75 BUN/Creatinine Ratio 22.7 H Random Glucose 93 Serum Osmolality 280.6 Calcium 10.1 Magnesium 2.0 Creatine Kinase 58 CK-MB (CK-2) 1.2 CK-MB (CK-2) % Not Reportable Troponin I < 0.02 B-Natriuretic Peptide 72.9 - EKG/XRAY/CT EKG: nonspecific ST T wave Chg Comments: heart rate-113;junctional tachycardia XRAY: chest - no acute findings CT Ordered: No - Additional EKG/XRAY/Consults EKG #2: Sinus, nonspecific ST T wave Chg Comments: HR-74 Departure - Departure Clinical Impression: Heart palpitations, Paroxysmal atrial fibrillation with RVR Hypertension Qualifiers: Hypertension type: unspecified Qualified Code(s): I10 - Essential (primary) hypertension Time of Disposition: 02:36 Disposition: Discharge to Home or Self Care Condition: Good Departure Forms: ED Discharge - Pt. Copy, Patient Portal Self Enrollment Instructions: DI for Atrial Fibrillation, Atrial Fibrillation Referrals: Niranjan Bryant MD [Primary Care Provider] - 1-2 Weeks Home Medications: Ambulatory Orders Propafenone HCl [Propafenone HCl ER] 225 mg PO BID 12/07/15 Warfarin Sodium 5 mg PO DAILY 12/07/15 Losartan Potassium [Cozaar] 50 mg PO BEDTIME 10/14/17 Qkttfsamhuqit-Ncgl-Dbqcvighgw [Fioricet] 1 ea PO Q8H PRN #21 tab 11/21/17 Cyclobenzaprine HCl [Flexeril] 5 mg PO TID PRN #30 tab 11/21/17 predniSONE [Prednisone] 20 mg PO DAILY #3 tab 11/21/17 Additional Instructions: Return to ER as needed ;Continue with all home medications as per direction
[2018-02-16 02:53] VITALS: BP 131/75
== END 2018-02-16 02:44 | disposition home or self-care (01) ==
LOC: ER 00:37
DX: I48.0 Paroxysmal atrial fibrillation (principal); R00.2 Palpitations; I10 Essential (primary) hypertension; Z79.01 Long term (current) use of anticoagulants; Z79.899 Other long term (current) drug therapy

== ENCOUNTER → 2018-08-08 | Outpatient (CLI) | payer MEDICARE, OTHER | LOC: GMAE 10:49 | PROVIDERS: ATTEND Family Medicine | DX: I10 Essential (primary) hypertension (principal) ==

== ENCOUNTER 2018-11-23 10:43 | Emergency (ER) | payer MEDICARE, OTHER ==
[2018-11-23 10:56] VITALS: TEMP 98.1
[2018-11-23] MEDS ORDERED: LABETALOL INJ 5 MG/ML VIAL IV ONE (10:58)
--- NOTE | 2018-11-23 11:01 | ED.PDOC ---
History of Present Illness - General Chief Complaint: Blood Pressure Problem Stated Complaint: HEAD POUNDING Time Seen by Provider: 11/23/18 10:51 Source: patient, family Exam Limitations: no limitations - History of Present Illness Initial Comments: patient comes in today with just not feeling well after she changed her heart medication. 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 Patient states she started feeling sick within the next 24-36 hours and was told she was supposed to slowly wean that mediction and to restart the medication. Since then she's had difficulties. Patient states her blood pressure has been elevated up to 190s and then back down to 140s. She just feels "crazy and poopy, just not right" the patient states she just doesn't feel like she is doing well but denies any acute chest pain, shortness of breath, vision change, abdominal pain, nausea or vomiting. She's had no cough or cold symptoms. No sore weakness on one side of the body or the other and no change in sensation. Patient has had headaches intermittently when the blood p ressure elevates. Timing/Duration: 1 week Improving Factors: nothing Worsening Factors: nothing Associated Symptoms: denies symptoms Allergies/Adverse Reactions: Allergies Azithromycin Adverse Reaction (Verified 02/16/18 01:09) Home Medications: Ambulatory Orders Propafenone HCl [Propafenone HCl ER] 225 mg PO BID 12/07/15 Warfarin Sodium 5 mg PO DAILY 12/07/15 Losartan Potassium [Cozaar] 50 mg PO DAILY 10/14/17 Review of Systems - Review of Systems Constitutional: States: no symptoms reported. Denies: chills, fever EENTM: States: no symptoms reported. Denies: eye pain, blurred vision Respiratory: States: no symptoms reported. Denies: short of breath Cardiology: States: no symptoms reported. Denies: chest pain, edema, palpitations Gastrointestinal/Abdominal: States: no symptoms reported. Denies: abdominal pain, diarrhea, nausea, vomiting Genitourinary: States: no symptoms reported Musculoskeletal: States: no symptoms reported Past Medical History (General) - Patient Medical History Hx Seizures: No Hx Stroke: No Hx Dementia: No Hx Asthma: No Hx of COPD: No Hx Cardiac Disorders: Yes - a-fib Hx Congestive Heart Failure: No Hx Pacemaker: No Hx Hypertension: Yes - takes losartan Hx Thyroid Disease: No Hx Diabetes: No Hx Gastroesophageal Reflux: No Hx Renal Disease: No Hx Cancer: No Hx of HIV: No Hx Hepatitis C: No Hx MRSA: No - Vaccination History Hx Tetanus, Diphtheria Vaccination: Yes Hx Influenza Vaccination: No Hx Pneumococcal Vaccination: No - Social History Hx Tobacco Use: No Hx Chewing Tobacco Use: No Hx Alcohol Use: No Hx Substance Use: No Hx Substance Use Treatment: No Hx Depression: No Hx Physical Abuse: No Hx Emotional Abuse: No Hx Suspected Abuse: No - Female History Patient : No Family Medical History - Family History Mother Family History: Unknown Living Status: Hx Cardiac Disease: Yes - multiple family members Age of Onset (years of age): 68 Hx Family Diabetes: Yes - brother Hx Family Cancer: Yes - breast-mom Physical Exam - Physical Exam General Appearance: Alert, Anxious, No apparent distress Eye Exam: bilateral normal Ears, Nose, Throat: hearing grossly normal, normal ENT inspection, normal pharynx Neck: non-tender, full range of motion, supple, normal inspection Respiratory: chest non-tender, lungs clear, normal breath sounds Cardiovascular/Chest: normal peripheral pulses, regular rate, rhythm, no edema, no murmur Peripheral Pulses: radial,right: 2+, radial,left: 2+ Gastrointestinal/Abdominal: normal bowel sounds, non tender, soft 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, no motor/sensory deficits, alert, oriented x 3, other - no drift, normal sensation, motor 5/5, normal reflexes Progress - Progress Progress: 11/23/18 12:33 patient is feeling much better and has no headache and is smiling and ready to be discharged - Results/Orders Results/Orders: 11/23/18 11:00 EKG STAT Laboratory Results WBC 5.2 K/mm3 (4.8-10.8) 11/23/18 11:01 RBC 4.36 M/mm3 (4.20-5.40) 11/23/18 11:01 Hgb 13.6 gm/dL (12.0-16.0) 11/23/18 11:01 Hct 41.8 % (36.0-47.0) 11/23/18 11:01 MCV 95.9 fl (81.0-99.0) 11/23/18 11:01 MCH 31.2 pg (27.0-31.0) H 11/23/18 11:01 MCHC 32.6 g/dL (33.0-37.0) L 11/23/18 11:01 RDW 13.9 % (11.5-14.5) 11/23/18 11:01 Plt Count 215 K/mm3 (130-400) 11/23/18 11:01 MPV 7.8 fl (7.40-10.4) 11/23/18 11:01 Absolute Neuts (auto) 2.60 K/uL (1.8-6.8) 11/23/18 11:01 Absolute Lymphs (auto) 1.90 K/uL (1.0-3.4) 11/23/18 11:01 Absolute Monos (auto) 0.50 K/uL (0.2-0.8) 11/23/18 11:01 Absolute Eos (auto) 0.10 K/uL (0.0-0.4) 11/23/18 11:01 Absolute Basos (auto) 0.00 K/uL (0.0-0.1) 11/23/18 11:01 Neutrophils % 50.6 % (42.0-78.0) 11/23/18 11:01 Lymphocytes % 37.1 % (20.0-50.0) 11/23/18 11:01 Monocytes % 9.4 % (2.0-9.0) H 11/23/18 11:01 Eosinophils % 2.4 % (1.0-5.0) 11/23/18 11:01 Basophils % 0.5 % (0.0-2.0) 11/23/18 11:01 Sodium 137 mmol/L (135-145) 11/23/18 11:01 Potassium 4.2 mmol/L (3.6-5.0) 11/23/18 11:01 Chloride 103 mmol/L (101-111) 11/23/18 11:01 Carbon Dioxide 27 mmol/L (21-31) 11/23/18 11:01 Anion Gap 11.2 (12-18) L 11/23/18 11:01 BUN 12 mg/dL (7-18) 11/23/18 11:01 Creatinine 0.70 mg/dL (0.6-1.3) 11/23/18 11:01 BUN/Creatinine Ratio 17.1 (10-20) 11/23/18 11:01 Random Glucose 93 mg/dL (70-105) 11/23/18 11:01 Serum Osmolality 273.3 mOsm/L (275-295) L 11/23/18 11:01 Calcium 9.6 mg/dL (8.4-10.2) 11/23/18 11:01 Magnesium 1.9 mg/dL (1.8-2.5) 11/23/18 11:01 Total Bilirubin 0.5 mg/dL (0.2-1.0) 11/23/18 11:01 AST 28 IU/L (10-42) 11/23/18 11:01 ALT 22 IU/L (10-60) 11/23/18 11:01 Alkaline Phosphatase 86 IU/L (42-121) 11/23/18 11:01 Creatine Kinase 37 IU/L (26-140) 11/23/18 11:01 CK-MB (CK-2) 0.8 ng/mL (0.0-4.4) 11/23/18 11:01 CK-MB (CK-2) % Not Reportable 11/23/18 11:01 Troponin I < 0.02 ng/mL (0.01-0.05) 11/23/18 11:01 Serum Total Protein 7.7 gm/dL (6.4-8.2) 11/23/18 11:01 Albumin 4.0 g/dl (3.2-5.5) 11/23/18 11:01 Globulin 3.7 gm/dL (2.3-3.5) H 11/23/18 11:01 Albumin/Globulin Ratio 1.1 (1.1-1.9) 11/23/18 11:01 - EKG/XRAY/CT EKG: Sinus, nonspecific ST T wave Chg Comments: HR [address] elevation or depression, NSR Departure - Departure Clinical Impression: Hypertensive urgency Disposition: Discharge to Home or Self Care Condition: Good Departure Forms: ED Discharge - Pt. Copy, Patient Portal Self Enrollment Instructions: DI for High Blood Pressure Referrals: PETER MOY MD [Primary Care Provider] - 1-2 Weeks Home Medications: Ambulatory Orders Propafenone HCl [Propafenone HCl ER] 225 mg PO BID 12/07/15 Warfarin Sodium 5 mg PO DAILY 12/07/15 Losartan Potassium [Cozaar] 50 mg PO DAILY 10/14/17 Additional Instructions: return to ER for chest pain, shortness of breath, vision change, altered LOC. Rest over the weekend and follow up with cardiology on Sunday
[2018-11-23] MEDS ORDERED: ENALAPRILAT INJ 1.25 MG/ML VIAL IV ONE ×2 (11:17→11:52)
[2018-11-23 13:21] VITALS: BP 169/98; O2SAT 97
== END 2018-11-23 13:12 | disposition home or self-care (01) ==
LOC: ER 10:43
DX: I16.0 Hypertensive urgency (principal); I48.91 Unspecified atrial fibrillation; Z79.899 Other long term (current) drug therapy; Z79.01 Long term (current) use of anticoagulants

== ENCOUNTER 2018-11-24 09:31 | Emergency (ER) | payer MEDICARE, OTHER ==
[2018-11-24] MEDS ORDERED: hydrALAZINE HCl 20 MG/ML VIAL IV ONE (10:05)
--- NOTE | 2018-11-24 10:16 | ED.PDOC ---
History of Present Illness - General Chief Complaint: Blood Pressure Problem Stated Complaint: Pt complains of HTN Time Seen by Provider: 11/24/18 10:00 Exam Limitations: no limitations - History of Present Illness Initial Comments: Demetria Rodriguez 73 y/o female stated that had felt blood pressure was elevated BP- 200/100 after taking it at home but denies headache,N/V,blurry vision,or chest pains .But felt heart was pounding.She was see here in ER yesterday for same symptoms. all her labs were -WNL,[id number] HR-65. Timing/Duration: 1-3 hours Activities at Onset: none Prior Chest Pain/Cardiac Workup: no prior chest pain, echocardiography, stress test Improving Factors: nothing Worsening Factors: nothing Nitro Today/Relief: no nitro taken today Associated Symptoms: other - taking blood thinners Allergies/Adverse Reactions: Allergies Azithromycin Adverse Reaction (Verified 02/16/18 01:09) Home Medications: Ambulatory Orders Propafenone HCl [Propafenone HCl ER] 225 mg PO BID 12/07/15 Warfarin Sodium 5 mg PO DAILY 12/07/15 Losartan Potassium [Cozaar] 50 mg PO DAILY 10/14/17 Review of Systems - Review of Systems Constitutional: States: no symptoms reported EENTM: States: no symptoms reported Respiratory: States: no symptoms reported Cardiology: States: other - high blood pressure,palpitations Gastrointestinal/Abdominal: States: no symptoms reported Genitourinary: States: no symptoms reported Skin: States: no symptoms reported Neurological: States: no symptoms reported Endocrine: States: no symptoms reported Hematologic/Lymphatic: States: no symptoms reported All other Systems: Reviewed and Negative, No Change from Baseline Past Medical History (General) - Patient Medical History Hx Seizures: No Hx Stroke: No Hx Dementia: No Hx Asthma: No Hx of COPD: No Hx Cardiac Disorders: Yes - A-fib Hx Congestive Heart Failure: No Hx Pacemaker: No Hx Hypertension: Yes Hx Thyroid Disease: No Hx Diabetes: No Hx Gastroesophageal Reflux: No Hx Renal Disease: No Hx Cancer: No Hx of HIV: No Hx Hepatitis C: No Hx MRSA: No Surgical History: other - Vaccination History Hx Tetanus, Diphtheria Vaccination: Yes Hx Influenza Vaccination: No Hx Pneumococcal Vaccination: No Immunizations Up to Date: Yes - Social History Hx Tobacco Use: No Hx Chewing Tobacco Use: No Hx Alcohol Use: No Hx Substance Use: No Hx Substance Use Treatment: No Hx Depression: No Hx Physical Abuse: No Hx Emotional Abuse: No Hx Suspected Abuse: No - Female History Patient is a Female of Child Bearing Age (10 -59 yrs old): No Patient : No Family Medical History - Family History Mother Family History: Unknown Living Status: Hx Cardiac Disease: Yes - multiple family members Age of Onset (years of age): 68 Hx Family Diabetes: Yes - brother Hx Family Cancer: Yes - breast-mom Progress - Progress Progress: 11/24/18 10:24 Vital Signs - 24 hr 11/24/18 11/24/18 09:39 09:40 Temperature 97.1 F L Pulse Rate [ 62 67 Right Radial] Respiratory 22 Rate Blood Pressure 200/101 [Right Arm] O2 Sat by Pulse 98 Oximetry Patient wants labs and medication to be put on hold since she was recently see here at ER yesterday and nothing significant on her test result 11/24/18 11:34 blood pressure on the downward trend - EKG/XRAY/CT EKG: Sinus, no ST T wave changes, Unchanged from - 23 Nov 2018 Comments: HR-69 Departure - Departure Clinical Impression: High blood pressure Qualifiers: Hypertension type: unspecified Qualified Code(s): I10 - Essential (primary) hypertension Time of Disposition: 11:32 Disposition: Discharge to Home or Self Care Condition: Fair Departure Forms: ED Discharge - Pt. Copy, Patient Portal Self Enrollment Instructions: DI for High Blood Pressure Referrals: PETER MOY MD [Primary Care Provider] - 1-2 Weeks Home Medications: Ambulatory Orders Propafenone HCl [Propafenone HCl ER] 225 mg PO BID 12/07/15 Warfarin Sodium 5 mg PO DAILY 12/07/15 Losartan Potassium [Cozaar] 50 mg PO DAILY 10/14/17 Additional Instructions: Continue with all home medications;May take Losartan -50 mg up to 2 tablets daily for high blood pressure;keep appointment with electronic wirer as scheduled;Need to take each medications 30 minutes apart
[2018-11-24] MEDS ORDERED: cloNIDine HCL 0.1 MG TAB PO ONE (10:34)
[2018-11-24 11:43] VITALS: BP 155/68; O2SAT 97
[2018-11-24 11:49] VITALS: TEMP 97.7
== END 2018-11-24 11:49 | disposition home or self-care (01) ==
LOC: ER 09:31
DX: I10 Essential (primary) hypertension (principal); I48.91 Unspecified atrial fibrillation; Z79.01 Long term (current) use of anticoagulants; Z79.899 Other long term (current) drug therapy; Z88.1 Allergy status to other antibiotic agents

== ENCOUNTER 2019-01-01 16:57 | Emergency (ER) | payer MEDICARE, OTHER ==
--- NOTE | 2019-01-01 17:52 | RAD ---
EXAM DESCRIPTION: Chest,1 View CLINICAL HISTORY: atrial fibrillation COMPARISON: 16 February 2018 TECHNIQUE: AP portable chest FINDINGS: Cardiomegaly is evident. The lungs are clear. No pleural fluid is seen. IMPRESSION: Cardiomegaly is observed without evidence of congestive heart failure. Electronically signed by: Dilshad Villalobos MD 01/01/2019 5:49 PM CDT
--- NOTE | 2019-01-01 18:46 | ED.PDOC ---
History of Present Illness - General Chief Complaint: Cardiovascular Problem Stated Complaint: fast heart rate Time Seen by Provider: 01/01/19 17:12 Source: patient Exam Limitations: no limitations - History of Present Illness Initial Comments: Patient presents with palpitations for three days. She has a history of atrial fibrillation and has been on different medications. She was on propafenone for a while but stopped it. She started taking it again two weeks ago. Three days ago she felt palpitations. She has occasional intermittent dyspnea. She was at the clinic today and her caregivers noted atrial fibrillation with RVR and increased INR, so she was told to come here. No other complaints. Denies chest pain or cough. Currently is not having dyspnea. Timing/Duration: other - 3 days Severity: mild Improving Factors: nothing Worsening Factors: nothing Associated Symptoms: other - as in HPI Allergies/Adverse Reactions: Allergies Azithromycin Adverse Reaction (Verified 02/16/18 01:09) Home Medications: Ambulatory Orders Propafenone HCl [Propafenone HCl ER] 225 mg PO BID 12/07/15 Warfarin Sodium 5 mg PO BEDTIME 12/07/15 Losartan Potassium [Cozaar] 50 mg PO DAILY 10/14/17 Metoprolol Tartrate 50 mg PO ONCE #1 tab 01/01/19 Review of Systems - Review of Systems Constitutional: States: no symptoms reported EENTM: States: no symptoms reported Respiratory: States: see HPI Cardiology: States: see HPI Gastrointestinal/Abdominal: States: no symptoms reported Genitourinary: States: no symptoms reported Musculoskeletal: States: no symptoms reported Skin: States: no symptoms reported Neurological: States: no symptoms reported Endocrine: States: no symptoms reported Hematologic/Lymphatic: States: see HPI Past Medical History (General) - Patient Medical History Hx Seizures: No Hx Stroke: No Hx Dementia: No Hx Asthma: No Hx of COPD: No Hx Cardiac Disorders: Yes - A-fib Hx Congestive Heart Failure: No Hx Pacemaker: No Hx Hypertension: Yes Hx Thyroid Disease: No Hx Diabetes: No Hx Gastroesophageal Reflux: No Hx Renal Disease: No Hx Cancer: No Hx of HIV: No Hx Hepatitis C: No Hx MRSA: No Surgical History: no surgical history - Vaccination History Hx Tetanus, Diphtheria Vaccination: Yes Hx Influenza Vaccination: Yes Hx Pneumococcal Vaccination: Yes - Social History Hx Tobacco Use: No Hx Chewing Tobacco Use: No Hx Alcohol Use: No Hx Substance Use: No Hx Substance Use Treatment: No Hx Depression: No Hx Physical Abuse: No Hx Emotional Abuse: No Hx Suspected Abuse: No - Female History Patient : No Family Medical History - Family History Mother Family History: Unknown Living Status: Hx Cardiac Disease: Yes - multiple family members Age of Onset (years of age): 68 Hx Family Diabetes: Yes - brother Hx Family Cancer: Yes - breast-mom Physical Exam - Physical Exam General Appearance: Alert Eye Exam: bilateral normal Ears, Nose, Throat: normal ENT inspection Neck: non-tender, full range of motion, supple Respiratory: chest non-tender, lungs clear Cardiovascular/Chest: normal peripheral pulses, regular rate, rhythm Gastrointestinal/Abdominal: normal bowel sounds, non tender, soft Back Exam: normal inspection, no CVA tenderness Extremity: normal range of motion, non-tender, normal inspection Neurologic: no motor/sensory deficits, alert, normal mood/affect, oriented x 3 Skin Exam: normal color Lymphatic: no adenopathy Progress - Progress Progress: 01/01/19 19:40 Laboratory Tests 01/01/19 01/01/19 01/01/19 17:05 17:05 17:05 WBC 6.9 RBC 4.79 Hgb 15.1 Hct 45.6 MCV 95.2 MCH 31.5 H MCHC 33.1 RDW 14.0 Plt Count 225 MPV 8.3 Absolute Neuts (auto) 3.70 Absolute Lymphs (auto) 2.50 Absolute Monos (auto) 0.60 Absolute Eos (auto) 0.10 Absolute Basos (auto) 0.00 Neutrophils % 53.5 Lymphocytes % 36.3 Monocytes % 9.0 Eosinophils % 0.9 L Basophils % 0.3 PT 53.2 H* INR 5.41 H* PTT (SP) 47.2 H* D-Dimer, Quantitative Sodium 137 Potassium 4.2 Chloride 104 Carbon Dioxide 22 Anion Gap 15.2 BUN 21 H Creatinine 1.11 BUN/Creatinine Ratio 18.9 Random Glucose 103 Serum Osmolality 277.0 Calcium 9.4 Total Bilirubin 0.6 AST 22 ALT 18 Alkaline Phosphatase 88 Creatine Kinase CK-MB (CK-2) CK-MB (CK-2) % Troponin I B-Natriuretic Peptide Serum Total Protein 7.8 Albumin 4.1 Globulin 3.7 H Albumin/Globulin Ratio 1.1 01/01/19 01/01/19 17:05 17:05 WBC RBC Hgb Hct MCV MCH MCHC RDW Plt Count MPV Absolute Neuts (auto) Absolute Lymphs (auto) Absolute Monos (auto) Absolute Eos (auto) Absolute Basos (auto) Neutrophils % Lymphocytes % Monocytes % Eosinophils % Basophils % PT INR PTT (SP) D-Dimer, Quantitative < 0.19 Sodium Potassium Chloride Carbon Dioxide Anion Gap BUN Creatinine BUN/Creatinine Ratio Random Glucose Serum Osmolality Calcium Total Bilirubin AST ALT Alkaline Phosphatase Creatine Kinase 43 CK-MB (CK-2) 1.0 CK-MB (CK-2) % Not Reportable Troponin I < 0.02 B-Natriuretic Peptide 385.0 H* Serum Total Protein Albumin Globulin Albumin/Globulin Ratio EKG read by me showed atrial fibrillation with RVR at 120 bpm. She varied between 80 bpm and 110 bpm in the E.D. until she was given Cardizem 10 mg IV x one. Her rate then stayed in the 80s. INR 5.41. BNP was 385 which is likely from mild congestion due to her atrial fibrillation. She was instructed to stop her warfarin until she sees Dr. Dietrich in two days. She was given an RX for metprolol tartrate 50 mg po to take tomorrow morning. She was instructed to continue all other medications. She has agreed to see Dr. Dietrich on Sunday ( in two days) for adjustment of her medications.Care instructions given. E.R. warnings given. Questions were elicited and answered. Patient voiced understanding and agreement with the plan. 01/01/19 19:49 Departure - Departure Clinical Impression: Atrial fibrillation Disposition: Discharge to Home or Self Care Condition: Good Departure Forms: ED Discharge - Pt. Copy, Patient Portal Self Enrollment Instructions: DI for Chest Pain Diet: resume usual diet Activity: increase activity as tolerated Referrals: PETER MOY MD [Primary Care Provider] - 1-2 Weeks Prescriptions: Metoprolol Tartrate 50 mg PO ONCE #1 tab Home Medications: Ambulatory Orders Propafenone HCl [Propafenone HCl ER] 225 mg PO BID 12/07/15 Warfarin Sodium 5 mg PO BEDTIME 12/07/15 Losartan Potassium [Cozaar] 50 mg PO DAILY 10/14/17 Metoprolol Tartrate 50 mg PO ONCE #1 tab 01/01/19 Additional Instructions: Stop your Warfarin tonight and tomorrow night then see how much Dr. Dietrich would like you to take starting on Sunday. Take the prescription tablet metoprolol tartrate tomorrow around noon. Keep taking your other medications. Call Dr. Dietrich tomorrow and get an appointment with him for Sunday. Return to the E.R. for chest pain, shortness of breath, light-headedness, or worsening symptoms.
[2019-01-01 20:12] VITALS: BP 139/99; TEMP 97.8; O2SAT 98
== END 2019-01-01 20:14 | disposition home or self-care (01) ==
LOC: ER 16:57
DX: I48.91 Unspecified atrial fibrillation (principal); R00.0 Tachycardia, unspecified; R06.00 Dyspnea, unspecified; I10 Essential (primary) hypertension; Z79.01 Long term (current) use of anticoagulants; Z79.899 Other long term (current) drug therapy; Z88.1 Allergy status to other antibiotic agents

== ENCOUNTER 2019-01-02 03:21 | Emergency (ER) | payer MEDICARE, OTHER ==
--- NOTE | 2019-01-02 04:04 | RAD ---
EXAM: Single view chest. INDICATION: Chest pain. COMPARISON: Chest x-ray: 01/01/2019. FINDINGS: Cardiac silhouette: Enlarged Aggie: Unremarkable. Lobar consolidation: None. Pleural effusion: None. Pneumothorax: None. Other: None. Bones: Unremarkable. Other: None. IMPRESSION: 1. No acute cardiopulmonary process. Electronically signed by: Quan Leigh MD 01/02/2019 4:00 AM CDT Workstation: [id number]
--- NOTE | 2019-01-02 05:30 | ED.PDOC ---
History of Present Illness - General Chief Complaint: General Stated Complaint: pain to right side below armpit Time Seen by Provider: 01/02/19 03:31 Source: patient Exam Limitations: no limitations - History of Present Illness Initial Comments: Patient presents after she woke up with a tingling feeling in her right axilla. It occurred about 2 hours [employer]. No previous episodes and has almost resolved upon arrival. She was here last night for palpitations from atrial fibrillation and was successfully rate controlled. She has an appointment with her foreign languages professor, Dr. Dietrich, tomorrow. She says she thinks that the sensation is from "eating late" and says that she has had gall bladder symptoms before. No chest pain nor dyspnea. No other complaints. Timing/Duration: 4-6 hours Severity: mild Improving Factors: nothing Worsening Factors: nothing Associated Symptoms: denies symptoms Allergies/Adverse Reactions: Allergies Azithromycin Adverse Reaction (Verified 02/16/18 01:09) Home Medications: Ambulatory Orders Propafenone HCl [Propafenone HCl ER] 225 mg PO BID 12/07/15 Warfarin Sodium 5 mg PO BEDTIME 12/07/15 Losartan Potassium [Cozaar] 50 mg PO DAILY 10/14/17 Metoprolol Tartrate 50 mg PO ONCE #1 tab 01/01/19 Review of Systems - Review of Systems Constitutional: States: no symptoms reported EENTM: States: no symptoms reported Respiratory: States: no symptoms reported Cardiology: States: no symptoms reported Gastrointestinal/Abdominal: States: see HPI Genitourinary: States: no symptoms reported Musculoskeletal: States: no symptoms reported Skin: States: no symptoms reported Neurological: States: no symptoms reported Endocrine: States: no symptoms reported Hematologic/Lymphatic: States: no symptoms reported Past Medical History (General) - Patient Medical History Hx Seizures: No Hx Stroke: No Hx Dementia: No Hx Asthma: No Hx of COPD: No Hx Cardiac Disorders: Yes - A-fib Hx Congestive Heart Failure: No Hx Pacemaker: No Hx Hypertension: Yes Hx Thyroid Disease: No Hx Diabetes: No Hx Gastroesophageal Reflux: No Hx Renal Disease: No Hx Cancer: No Hx of HIV: No Hx Hepatitis C: No Hx MRSA: No Surgical History: no surgical history - Vaccination History Hx Tetanus, Diphtheria Vaccination: Yes Hx Influenza Vaccination: Yes Hx Pneumococcal Vaccination: Yes - Social History Hx Tobacco Use: No Hx Chewing Tobacco Use: No Hx Alcohol Use: No Hx Substance Use: No Hx Substance Use Treatment: No Hx Depression: No Hx Physical Abuse: No Hx Emotional Abuse: No Hx Suspected Abuse: No - Female History Patient : No Family Medical History - Family History Mother Family History: Unknown Living Status: Hx Cardiac Disease: Yes - multiple family members Age of Onset (years of age): 68 Hx Family Diabetes: Yes - brother Hx Family Cancer: Yes - breast-mom Physical Exam - Physical Exam General Appearance: Alert Eye Exam: bilateral normal Ears, Nose, Throat: hearing grossly normal, normal ENT inspection Neck: non-tender, full range of motion, supple Respiratory: lungs clear, normal breath sounds Cardiovascular/Chest: normal peripheral pulses, regular rate, rhythm Gastrointestinal/Abdominal: normal bowel sounds, non tender, soft Back Exam: normal inspection, no CVA tenderness Extremity: normal range of motion, non-tender, normal inspection Neurologic: no motor/sensory deficits, alert, normal mood/affect, oriented x 3 Skin Exam: normal color Lymphatic: no adenopathy Progress - Results/Orders Results/Orders: Laboratory Tests 01/02/19 01/02/19 01/02/19 03:34 03:34 03:35 WBC 5.3 RBC 4.48 Hgb 14.0 Hct 42.5 MCV 94.9 MCH 31.3 H MCHC 33.0 RDW 14.1 Plt Count 197 MPV 8.3 Absolute Neuts (auto) 2.50 Absolute Lymphs (auto) 2.00 Absolute Monos (auto) 0.60 Absolute Eos (auto) 0.10 Absolute Basos (auto) 0.00 Neutrophils % 47.5 Lymphocytes % 37.4 Monocytes % 12.2 H Eosinophils % 2.3 Basophils % 0.6 PT INR PTT (SP) Sodium 137 Potassium 3.9 Chloride 105 Carbon Dioxide 21 Anion Gap 14.9 BUN 23 H Creatinine 1.08 BUN/Creatinine Ratio 21.3 H Random Glucose 94 Serum Osmolality 277.3 Calcium 9.1 Total Bilirubin 0.6 AST 19 ALT 15 Alkaline Phosphatase 78 Creatine Kinase 35 CK-MB (CK-2) 0.9 CK-MB (CK-2) % Not Reportable Troponin I < 0.02 B-Natriuretic Peptide 329.0 H* Serum Total Protein 7.1 Albumin 3.8 Globulin 3.3 Albumin/Globulin Ratio 1.2 01/02/19 03:35 WBC RBC Hgb Hct MCV MCH MCHC RDW Plt Count MPV Absolute Neuts (auto) Absolute Lymphs (auto) Absolute Monos (auto) Absolute Eos (auto) Absolute Basos (auto) Neutrophils % Lymphocytes % Monocytes % Eosinophils % Basophils % PT 46.4 H* INR 4.71 H* PTT (SP) 43.2 H Sodium Potassium Chloride Carbon Dioxide Anion Gap BUN Creatinine BUN/Creatinine Ratio Random Glucose Serum Osmolality Calcium Total Bilirubin AST ALT Alkaline Phosphatase Creatine Kinase CK-MB (CK-2) CK-MB (CK-2) % Troponin I B-Natriuretic Peptide Serum Total Protein Albumin Globulin Albumin/Globulin Ratio EKG showed atrial fibrillation, rate controlled. QT interval was slightly longer than yesterday and could possibly be due to propafenone in combination with the one dose of calcium channel antonio (Cardizem) that she received in the E.D. However, the Cardizem should be fully metabolized by now. I have instructed her not to fill the prescription for the one metoprolol tartrate tablet that I prescribed her, in order not to further elongate the QT interval or have A-V dissociation. She will see her foreign languages professor tomorrow so her longer term treatment will be addressed. Her INR has improved so she was instructed to stay with the original plan and not take the warfarin tonight. She remained asymptomatic in the E.D. The sensation that was under her right axilla is likely not cardiac in nature. Departure - Departure Clinical Impression: Chest wall discomfort, Atrial fibrillation Disposition: Discharge to Home or Self Care Condition: Good Departure Forms: ED Discharge - Pt. Copy, Patient Portal Self Enrollment Diet: resume usual diet Activity: increase activity as tolerated Referrals: PETER MOY MD [Primary Care Provider] - 1-2 Weeks Home Medications: Ambulatory Orders Propafenone HCl [Propafenone HCl ER] 225 mg PO BID 12/07/15 Warfarin Sodium 5 mg PO BEDTIME 12/07/15 Losartan Potassium [Cozaar] 50 mg PO DAILY 10/14/17 Metoprolol Tartrate 50 mg PO ONCE #1 tab 01/01/19 Additional Instructions: Do not fill the prescription for metoprolol tartrate today. Instead, await instructions from Dr. Dietrich. Do not take your warfarin tonight. Await further instructions from Dr. Dietrich as well as having your INR measured again tomorrow. Return to the E.R. for chest pain, light-headedness, or shortness of breath.
[2019-01-02 05:46] VITALS: O2SAT 96
[2019-01-02 05:49] VITALS: BP 149/108; TEMP 97.1
== END 2019-01-02 05:49 | disposition home or self-care (01) ==
LOC: ER 03:21
DX: R07.1 Chest pain on breathing (principal); I48.91 Unspecified atrial fibrillation; I10 Essential (primary) hypertension; Z79.01 Long term (current) use of anticoagulants; Z79.899 Other long term (current) drug therapy; Z88.1 Allergy status to other antibiotic agents

== ENCOUNTER 2019-01-12 02:59 | Emergency (ER) | payer MEDICARE, OTHER ==
[2019-01-12] MEDS ORDERED: ALPRAZolam 0.25 MG TAB PO ONE (03:37)
--- NOTE | 2019-01-12 05:29 | ED.PDOC ---
History of Present Illness - General Chief Complaint: Respiratory Problem Stated Complaint: shortness of breath Time Seen by Provider: 01/12/19 03:22 Source: patient Exam Limitations: no limitations - History of Present Illness Initial Comments: The patient is a 73-year-old female presenting to emergency room secondary to waking up with a feeling of palpitations and associated shortness of breath. She does have a significant history of A. fib with RVR but was cardioverted 2 days ago. By the time she arrived here she was in normal sinus rhythm with normal saturations and feeling much better. No real chest pain. No syncope or near syncope. Blood pressure was elevated initially upon her check. Timing/Duration: 1/2 hour Severity: moderate Improving Factors: rest Worsening Factors: nothing Associated Symptoms: denies symptoms Allergies/Adverse Reactions: Allergies Azithromycin Adverse Reaction (Verified 02/16/18 01:09) Home Medications: Ambulatory Orders Propafenone HCl [Propafenone HCl ER] 225 mg PO BID 12/07/15 Warfarin Sodium 5 mg PO BEDTIME 12/07/15 Losartan Potassium [Cozaar] 50 mg PO DAILY 10/14/17 Metoprolol Tartrate 50 mg PO ONCE #1 tab 01/01/19 Review of Systems - Review of Systems Constitutional: States: no symptoms reported EENTM: States: no symptoms reported Respiratory: States: no symptoms reported Cardiology: States: palpitations Gastrointestinal/Abdominal: States: no symptoms reported Genitourinary: States: no symptoms reported Musculoskeletal: States: no symptoms reported Skin: States: no symptoms reported Neurological: States: anxiety Endocrine: States: no symptoms reported All other Systems: No Change from Baseline Past Medical History (General) - Patient Medical History Hx Seizures: No Hx Stroke: No Hx Dementia: No Hx Asthma: No Hx of COPD: No Hx Cardiac Disorders: Yes - A-fib Hx Congestive Heart Failure: No Hx Pacemaker: No Hx Hypertension: Yes Hx Thyroid Disease: No Hx Diabetes: No Hx Gastroesophageal Reflux: No Hx Renal Disease: No Hx Cancer: No Hx of HIV: No Hx Hepatitis C: No Hx MRSA: No Surgical History: no surgical history - Vaccination History Hx Tetanus, Diphtheria Vaccination: No Hx Influenza Vaccination: Yes Hx Pneumococcal Vaccination: Yes Immunizations Up to Date: Yes - Social History Hx Tobacco Use: No Hx Chewing Tobacco Use: No Hx Alcohol Use: No Hx Substance Use: No Hx Substance Use Treatment: No Hx Depression: No Feels Threatened In Home Enviroment: No Feels Threatened In a Relationship: No Hx Physical Abuse: No Hx Emotional Abuse: No Hx Suspected Abuse: No - Activities of Daily Living Hospice Agency (if applicable):: None - Female History Patient is a Female of Child Bearing Age (10 -59 yrs old): No Patient : No Family Medical History - Family History Mother Family History: Unknown Living Status: Hx Cardiac Disease: Yes - multiple family members Age of Onset (years of age): 68 Hx Family Diabetes: Yes - brother Hx Family Cancer: Yes - breast-mom Physical Exam - Physical Exam General Appearance: Alert, Anxious, No apparent distress Eye Exam: bilateral normal Ears, Nose, Throat: hearing grossly normal, normal ENT inspection, normal pharynx Neck: full range of motion, supple Respiratory: lungs clear, normal breath sounds, no respiratory distress, no accessory muscle use Cardiovascular/Chest: normal peripheral pulses, regular rate, rhythm, no edema Peripheral Pulses: radial,right: 2+, radial,left: 2+ Gastrointestinal/Abdominal: non tender, soft Rectal Exam: deferred Back Exam: no CVA tenderness, no vertebral tenderness Extremity: non-tender, normal inspection, no pedal edema, normal capillary refill 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, alert, normal mood/affect, oriented x 3 Skin Exam: normal color Comments: Vital Signs - 24 hr 01/12/19 01/12/19 01/12/19 03:00 03:09 04:00 Temperature 98.1 F Pulse Rate [ 62 53 L radial] Respiratory 18 18 12 Rate Blood Pressure 170/90 107/56 [Left Arm] O2 Sat by Pulse 96 94 L Oximetry Progress - Results/Orders Results/Orders: Laboratory Tests 01/12/19 01/12/19 03:00 03:00 WBC 7.5 RBC 4.11 L Hgb 12.9 Hct 39.5 MCV 95.9 MCH 31.4 H MCHC 32.7 L RDW 14.1 Plt Count 223 MPV 8.6 Absolute Neuts (auto) 3.40 Absolute Lymphs (auto) 3.10 Absolute Monos (auto) 0.60 Absolute Eos (auto) 0.30 Absolute Basos (auto) 0.10 Neutrophils % 45.4 Lymphocytes % 41.7 Monocytes % 8.4 Eosinophils % 3.8 Basophils % 0.7 Sodium 138 Potassium 4.3 Chloride 104 Carbon Dioxide 24 Anion Gap 14.3 BUN 17 Creatinine 0.83 BUN/Creatinine Ratio 20.5 H Random Glucose 85 Serum Osmolality 276.5 Calcium 9.3 Magnesium 2.1 Total Bilirubin 0.6 AST 23 ALT 18 Alkaline Phosphatase 84 Creatine Kinase 39 CK-MB (CK-2) 0.7 CK-MB (CK-2) % Not Reportable Troponin I < 0.02 B-Natriuretic Peptide 121.0 H Serum Total Protein 7.4 Albumin 4.1 Globulin 3.3 Albumin/Globulin Ratio 1.2 TSH 3.48 EKG shows sinus bradycardia at 55 bpm. Left atrial dilation. Normal axis. Borderline QT interval. No definitive ST segment or T-wave changes consistent with acute ischemia the patient is a 73-year-old female presenting to the emergency room secondary to A feeling of palpitations and associated anxiety with it. By the time of arrival here the patient was in a normal sinus rhythm and feeling better. She does need to keep a diary of any episodes of palpitations as far as what time they occur, how long they last and how severe they are. she needs to continue her medications for her cardiac rhythm control. ER warnings were given for any worsening. Follow up with cardiology and primary care doctor. Laboratory work was reassuring. Departure - Departure Clinical Impression: Anxiety about health, Palpitations Disposition: Discharge to Home or Self Care Condition: Fair Departure Forms: ED Discharge - Pt. Copy, Patient Portal Self Enrollment Diet: regular diet Activity: increase activity as tolerated Referrals: PETER MOY MD [Primary Care Provider] - 1-2 Weeks Home Medications: Ambulatory Orders Propafenone HCl [Propafenone HCl ER] 225 mg PO BID 12/07/15 Warfarin Sodium 5 mg PO BEDTIME 12/07/15 Losartan Potassium [Cozaar] 50 mg PO DAILY 10/14/17 Metoprolol Tartrate 50 mg PO ONCE #1 tab 01/01/19 Additional Instructions: the patient is a 73-year-old female presenting to the emergency room secondary to A feeling of palpitations and associated anxiety with it. By the time of arrival here the patient was in a normal sinus rhythm and feeling better. She does need to keep a diary of any episodes of palpitations as far as what time they occur, how long they last and how severe they are. she needs to continue her medications for her cardiac rhythm control. ER warnings were given for any worsening. Follow up with cardiology and primary care doctor. Laboratory work was reassuring.
[2019-01-12 05:46] VITALS: TEMP 98.7
[2019-01-12 05:47] VITALS: BP 100/50; O2SAT 94
== END 2019-01-12 05:47 | disposition home or self-care (01) ==
LOC: ER 02:59
DX: F41.9 Anxiety disorder, unspecified (principal); R00.2 Palpitations; R00.1 Bradycardia, unspecified; I48.91 Unspecified atrial fibrillation; I10 Essential (primary) hypertension; Z79.01 Long term (current) use of anticoagulants; Z79.899 Other long term (current) drug therapy; Z88.1 Allergy status to other antibiotic agents

== ENCOUNTER 2019-01-16 11:48 | Observation (INO) | payer MEDICARE, OTHER ==
[2019-01-16] MEDS ORDERED: CHLORHEXIDINE GLUCONATE 4 % 15 ML UD TOP ONE (11:50)
--- NOTE | 2019-01-16 12:40 | ED.PDOC ---
History of Present Illness - General Chief Complaint: Cardiovascular Problem Stated Complaint: low heart rate Time Seen by Provider: 01/16/19 12:38 Source: patient, family Exam Limitations: no limitations - History of Present Illness Initial Comments: patient comes in today for symptomatic bradycardia. Patient suffers from atrial fibrillation and was converted on Sunday to normal sinus rhythm. Patient states every time she has been on either a calcium channel antonio or beta antonio she has this difficulty. Her heart rate will go to the 30s and she feels weak and dizzy. Patient states all activity causes her to feel unsteady and so she came in today for evaluation. She denies any chest pain, shortness of breath, nausea or vomiting. Her last dose of Toprol was yesterday as she was too scared to take it this morning as her heart rate since yesterday has been in the 30s to 50s consistently. Patient denies any other acute symptoms. Timing/Duration: days Severity: moderate Location: other - no pain Activities at Onset: activity Prior Chest Pain/Cardiac Workup: other Improving Factors: nothing Worsening Factors: movement Nitro Today/Relief: no nitro taken today Allergies/Adverse Reactions: Allergies Azithromycin Adverse Reaction (Verified 02/16/18 01:09) Home Medications: Ambulatory Orders Propafenone HCl [Propafenone HCl ER] 225 mg PO BID 12/07/15 Losartan Potassium [Cozaar] 50 mg PO DAILY 10/14/17 Metoprolol Tartrate 50 mg PO ONCE #1 tab 01/01/19 Apixaban [Eliquis] 5 mg PO BID 01/16/19 Review of Systems - Review of Systems Constitutional: States: weakness. Denies: chills, fever EENTM: States: no symptoms reported. Denies: blurred vision, double vision Respiratory: States: no symptoms reported. Denies: cough, short of breath, wheezing Cardiology: States: no symptoms reported. Denies: chest pain, edema, palpitations Gastrointestinal/Abdominal: States: no symptoms reported. Denies: abdominal pain, nausea, vomiting Genitourinary: States: no symptoms reported Musculoskeletal: States: no symptoms reported Past Medical History (General) - Patient Medical History Hx Seizures: No Hx Stroke: No Hx Dementia: No Hx Asthma: No Hx of COPD: No Hx Cardiac Disorders: Yes - A-fib Hx Congestive Heart Failure: No Hx Pacemaker: No Hx Hypertension: Yes Hx Thyroid Disease: No Hx Diabetes: No Hx Gastroesophageal Reflux: No Hx Renal Disease: No Hx Cancer: No Hx of HIV: No Hx Hepatitis C: No Hx MRSA: No Surgical History: no surgical history - Vaccination History Hx Tetanus, Diphtheria Vaccination: No Hx Influenza Vaccination: Yes Hx Pneumococcal Vaccination: No - Social History Hx Tobacco Use: No Hx Chewing Tobacco Use: No Hx Alcohol Use: No Hx Substance Use: No Hx Substance Use Treatment: No Hx Depression: No Hx Physical Abuse: No Hx Emotional Abuse: No Hx Suspected Abuse: No - Female History Patient : No Family Medical History - Family History Mother Family History: Unknown Living Status: Hx Cardiac Disease: Yes - multiple family members Age of Onset (years of age): 68 Hx Family Diabetes: Yes - brother Hx Family Cancer: Yes - breast-mom Physical Exam - Physical Exam General Appearance: Alert, Comfortable, No apparent distress Eyes, Ears, Nose, Throat Exam: PERRL/EOMI, normal ENT inspection, TMs normal, pharynx normal Neck: non-tender, full range of motion, supple, normal inspection Respiratory: chest non-tender, lungs clear, normal breath sounds, no respiratory distress Cardiovascular/Chest: normal peripheral pulses, regular rate, rhythm, no edema, no gallop Peripheral Pulses: radial,right: 2+, radial,left: 2+ Gastrointestinal/Abdominal: normal bowel sounds, non tender, soft Neurologic: no motor/sensory deficits, alert, oriented x 3 Progress - Progress Progress: 01/16/19 13:55 patient feels a little better. 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 Dumont) consulted. With normal EKG and blood work will allow to go home with Toprol held for two days to be restarted on Sunday at 25 mg with close follow up. Return to Er for worsening of symptoms, chest pain, shortness of breath 01/16/19 14:12 after discussion with and nurse taking care of patient both are not sure that episodes are better and may actually be happening more often. She is still having bradycardia in the 30s at time on looking at the monitor. order caller practioner called and we will observe here in the hospital on tele - Results/Orders Results/Orders: 01/16/19 12:15 EKG STAT Laboratory Results WBC 6.1 K/mm3 (4.8-10.8) 01/16/19 12:25 RBC 4.15 M/mm3 (4.20-5.40) L 01/16/19 12:25 Hgb 13.4 gm/dL (12.0-16.0) 01/16/19 12:25 Hct 39.6 % (36.0-47.0) 01/16/19 12:25 MCV 95.4 fl (81.0-99.0) 01/16/19 12:25 MCH 32.2 pg (27.0-31.0) H 01/16/19 12:25 MCHC 33.7 g/dL (33.0-37.0) 01/16/19 12:25 RDW 14.3 % (11.5-14.5) 01/16/19 12:25 Plt Count 225 K/mm3 (130-400) 01/16/19 12:25 MPV 8.2 fl (7.40-10.4) 01/16/19 12:25 Absolute Neuts (auto) 3.80 K/uL (1.8-6.8) 01/16/19 12:25 Absolute Lymphs (auto) 1.60 K/uL (1.0-3.4) 01/16/19 12:25 Absolute Monos (auto) 0.50 K/uL (0.2-0.8) 01/16/19 12:25 Absolute Eos (auto) 0.10 K/uL (0.0-0.4) 01/16/19 12:25 Absolute Basos (auto) 0.00 K/uL (0.0-0.1) 01/16/19 12:25 Neutrophils % 62.2 % (42.0-78.0) 01/16/19 12:25 Lymphocytes % 26.5 % (20.0-50.0) 01/16/19 12:25 Monocytes % 8.9 % (2.0-9.0) 01/16/19 12:25 Eosinophils % 2.0 % (1.0-5.0) 01/16/19 12:25 Basophils % 0.4 % (0.0-2.0) 01/16/19 12:25 PT 10.8 SECONDS (9.0-10.9) 01/16/19 12:25 INR 1.08 (0.9-1.15) 01/16/19 12:25 PTT (SP) 28.4 SECONDS (21.8-31.6) 01/16/19 12:25 Sodium 136 mmol/L (135-145) 01/16/19 12:25 Potassium 4.3 mmol/L (3.6-5.0) 01/16/19 12:25 Chloride 104 mmol/L (101-111) 01/16/19 12:25 Carbon Dioxide 21 mmol/L (21-31) 01/16/19 12:25 Anion Gap 15.3 (12-18) 01/16/19 12:25 BUN 14 mg/dL (7-18) 01/16/19 12:25 Creatinine 0.75 mg/dL (0.6-1.3) 01/16/19 12:25 BUN/Creatinine Ratio 18.7 (10-20) 01/16/19 12:25 Random Glucose 99 mg/dL (70-105) 01/16/19 12:25 Serum Osmolality 272.5 mOsm/L (275-295) L 01/16/19 12:25 Calcium 9.6 mg/dL (8.4-10.2) 01/16/19 12:25 Magnesium 2.1 mg/dL (1.8-2.5) 01/16/19 12:25 Total Bilirubin 0.5 mg/dL (0.2-1.0) 01/16/19 12:25 AST 19 IU/L (10-42) 01/16/19 12:25 ALT 16 IU/L (10-60) 01/16/19 12:25 Alkaline Phosphatase 86 IU/L (42-121) 01/16/19 12:25 Creatine Kinase 33 IU/L (26-140) 01/16/19 12:25 CK-MB (CK-2) 0.8 ng/mL (0.0-4.4) 01/16/19 12:25 CK-MB (CK-2) % Not Reportable 01/16/19 12:25 Troponin I < 0.02 ng/mL (0.01-0.05) 01/16/19 12:25 Serum Total Protein 7.7 gm/dL (6.4-8.2) 01/16/19 12:25 Albumin 4.0 g/dl (3.2-5.5) 01/16/19 12:25 Globulin 3.7 gm/dL (2.3-3.5) H 01/16/19 12:25 Albumin/Globulin Ratio 1.1 (1.1-1.9) 01/16/19 12:25 - EKG/XRAY/CT EKG: Rip, Sinus, no ST T wave changes Comments: HR 53 normal axis Departure - Departure Clinical Impression: Bradycardia Disposition: Admit Patient Condition: Good Departure Forms: ED Discharge - Pt. Copy, Patient Portal Self Enrollment Instructions: DI for Chest Pain Referrals: PETER MOY MD [Primary Care Provider] - 1-2 Weeks Home Medications: Ambulatory Orders Propafenone HCl [Propafenone HCl ER] 225 mg PO BID 12/07/15 Losartan Potassium [Cozaar] 50 mg PO DAILY 10/14/17 Metoprolol Tartrate 50 mg PO ONCE #1 tab 01/01/19 Apixaban [Eliquis] 5 mg PO BID 01/16/19 Decision To Admit - Decistion To Admit Decision to Admit Reason: Admit from ER Decision to Admit Date: 01/16/19 Decision to Admit Time: 14:14
--- NOTE | 2019-01-16 14:50 | HP ---
SUPERVISING PHYSICIAN: Kamran Austin M.D. CHIEF COMPLAINT: Low heart rate and feeling very weak. HISTORY OF PRESENT ILLNESS: This is a 73 year-old female patient who has a history of atrial fibrillation for approximately 7 years. She has been on Rythmol for many years and last Sunday she was actually cardioverted by Dr. Dumont and put on Metoprolol. She has had problems with the Metoprolol in the past. She was put on 50 mg of Metoprolol succinate daily. Over the last couple of days she has felt her heart rate go down. She feels weak and dizzy. It has gone into the 30s. She has no other symptoms that she complains of other than weakness and dizziness. There has been no chest pain. No diaphoresis. Her workup in the Emergency Room showed her to be in sinus rhythm in the 50s, but she did frequently go down to the mid 30s, although her blood pressure remained stable. Vital signs in the Emergency Room showed a temperature 98.5, heart rate 51 that was irregular and did drop again to the mid 30s on the quality assurance monitor final. Initial blood pressure was 204/95 but this improved to 170/85. Respiratory rate was 16, O2 sat 95% on room air. CBC and chemistry were unremarkable. Dr. Dumont' associate was called at [facility] and he recommended that the patient be sent home and start on half her dose of Metoprolol. The family was quite uncomfortable with that, so she will be placed in observation overnight to watch her rhythm. PAST MEDICAL HISTORY: 1. Hypertension. 2. Atrial fibrillation times 7 years on Rythmol and Eliquis. PAST SURGICAL HISTORY: 1. Removal of epidermal cyst on her breast. CURRENT MEDICATIONS: 1. Losartan. 2. Rythmol. 3. Eliquis. 4. She was recently put on Toprol XL. ALLERGIES: NO KNOWN DRUG ALLERGIES. FAMILY HISTORY: Positive for Alzheimer's as well as cardiovascular disease and autoimmune disorder. SOCIAL HISTORY: She denies any smoking, drinking or illicit drug use. She is retired. She is and lives in [place]. REVIEW OF SYSTEMS: Negative except as per History of Present Illness. PHYSICAL EXAMINATION: VITAL SIGNS: Temperature 97.6, heart rate 54, blood pressure 128/65, respiratory rate 16, O2 sat 97% on room air. GENERAL: This is a 73 year-old female patient lying in her hospital bed. She is in no acute distress. HEENT: Normocephalic and atraumatic. Pupils are equal and reactive. Oropharynx is clear. NECK: Supple without mass. RESPIRATORY: Essentially clear to auscultation bilaterally. CHEST: There is equal rise and fall of the chest with inspiration and expiration. CARDIOVASCULAR: Bradycardic rate, slightly irregular rhythm. GASTROINTESTINAL: Abdomen is soft, nondistended, non-tender. Bowel sounds are positive. EXTREMITIES: No clubbing, cyanosis or edema. NEUROLOGIC: She is awake, alert and oriented times three. LABORATORY: Labs and films are as per the history of present illness. ASSESSMENT: 1. Bradycardia status post cardioversion 6 days ago and recently placed on beta blockades. 2. History of atrial fibrillation times 7 years. She has been on Rythmol and Eliquis. Her Eliquis was just started approximately 3 weeks ago. 3. Hypertension on Losartan. PLAN: We will place the patient in observation. We will monitor her overnight. The patient is not comfortable with restarting the Metoprolol, so hopefully we can contact Dr. Dumont tomorrow for a plan of care as well as what medications he would like the patient to be on as well as followup after discharge. She may even need to go home on a Holter monitor until she can see Dr. Dumont. I have restarted her home medications. I will recheck lab in the morning. Will monitor close via the quality assurance monitor final and will treat her as appropriate. #[id number] [facility]
[2019-01-16] MEDS ORDERED: SODIUM CHLORIDE 0.9% (FLUSH) 10 ML SYG IV PRN (15:54)
[2019-01-16] MEDS ORDERED: ACETAMINOPHEN 325 MG TAB PO PRN (15:54)
[2019-01-16] MEDS ORDERED: NITROGLYCERIN 0.4 MG 25 EA TAB SL PRN (15:54)
[2019-01-16] MEDS ORDERED: MORPHINE SULFATE INJ 10 MG/ML VIAL IV PRN (15:54)
[2019-01-16] MEDS ORDERED: IV SET AND CAP CHANGE INJ INJ SCH (16:00)
[2019-01-16] MEDS ORDERED: APIXABAN 2.5 MG TAB PO ONE (20:23)
[2019-01-16] MEDS ORDERED: PROPAFENONE 150 MG TAB ONE (20:23)
[2019-01-16] MEDS ORDERED: NON-FORMULARY MEDICATION 1 EA MIS (Apixaban [Eliquis] 5 MG) PO SCH (21:00)
[2019-01-16] MEDS ORDERED: SODIUM CHLORIDE 0.9% (FLUSH) 10 ML SYG IV SCH (21:00)
[2019-01-16] MEDS ORDERED: PROPAFENONE HCL 225 MG PO SCH (21:00)
[2019-01-17] MEDS ORDERED: APIXABAN 2.5 MG TAB PO ONE (08:13)
[2019-01-17] MEDS ORDERED: LOSARTAN POTASSIUM 25 MG TAB ONE (08:13)
[2019-01-17] MEDS ORDERED: PROPAFENONE 150 MG TAB PO SCH (09:00)
[2019-01-17] MEDS ORDERED: LOSARTAN POTASSIUM 100 MG TAB PO SCH (09:00)
[2019-01-17] MEDS ORDERED: APIXABAN 2.5 MG TAB PO SCH (09:00)
[2019-01-17 12:25] VITALS: BP 93/50; TEMP 97.8; O2SAT 97
== END 2019-01-17 13:20 | disposition home or self-care (01) ==
LOC: ER 11:48 → MS 14:45
PROVIDERS: ADMIT Nurse Practitioner Acute Care; ATTEND Nurse Practitioner Acute Care
DX: R00.1 Bradycardia, unspecified (principal); I48.91 Unspecified atrial fibrillation; I10 Essential (primary) hypertension; Z79.01 Long term (current) use of anticoagulants; Z79.899 Other long term (current) drug therapy; Z82.49 Family history of ischemic heart disease and other diseases of the circulatory system
CPT/HCPCS: 82553; 80053 ×2; 36415 ×2; 85025 ×2; 82550; 83735; 85730; 85610 ×2; 84484; 94760 ×2; 99285; 93005; G0378

== ENCOUNTER → 2020-04-01 | Outpatient (CLI) | payer MEDICARE, OTHER | LOC: GMAE 11:13 | PROVIDERS: ATTEND Family Medicine | DX: I10 Essential (primary) hypertension (principal); E78.5 Hyperlipidemia, unspecified ==